=== PATIENT | female | born 1960 | race Caucasian/White ===

== ENCOUNTER 2021-08-06 06:29 | Day surgery (SDC) | payer BC, OTHER ==
[2021-08-04 10:27] LABS: BASOPHILS % (AUTO) 0.3 % (0.0-5.0); EOSINOPHILS % (AUTO) 2.3 % (0.0-8.0); HEMATOCRIT 39.7 % (36-48); LYMPHOCYTES % (AUTO) 31.3 % (21.0-51.0); MEAN CORPUSCULAR HGB CONC 33.5 g/dL (32.0-36.0); MEAN CORPUSCULAR VOLUME 95.7 fL (79-99); MONOCYTES % (AUTO) 8.2 % (3.0-13.0); NEUTROPHILS % (AUTO) 57.7 % (40.0-77.0); PLATELET COUNT (AUTO) 251 K/uL (130-400); RED BLOOD CELL COUNT(AUTO) 4.15 MIL/uL (4.00-5.50); RED CELL DISTRIBUTION WIDTH 11.9 % (11.0-15.5)
[2021-08-04 10:36] LABS: CREATININE 0.7 mg/dL (0.5-1.5); POTASSIUM 4.5 mmol/L (3.5-5.1)
[2021-08-05 09:27] VITALS: BP 118/75
[2021-08-06] VITALS (14 sets, daily range): BP systolic 120–153; BP diastolic 75–96
[~2021-08-06] VITALS: Ht 165.1 cm; Wt 69.3 kg
[~2021-08-06 06:29] MED LIST: MVIT PO
[2021-08-06] MEDS ORDERED: LACTATED RINGERS 1000ML 1,000 ML IV ONE (07:20)
[2021-08-06] MEDS ORDERED: CEFAZOLIN SODIUM 1 GM VIAL IVP ONE (08:00)
[2021-08-06] MEDS ORDERED: LIDOCAINE PF 100MG/5ML (2%) SYRINGE 5ML ONE (08:53)
[2021-08-06] MEDS ORDERED: SUCCINYLCHOLINE 200MG/10ML SYR ONE (08:53)
[2021-08-06] MEDS ORDERED: PROPOFOL 10 MG/ML 20ML VIAL IV ONE (08:54)
[2021-08-06] MEDS ORDERED: ROCURONIUM 10MG/1ML SYR 10 MG/ML ML ONE (08:54)
[2021-08-06] MEDS ORDERED: MIDAZOLAM HCL 1 MG/ML 2ML VIAL ONE (08:54)
[2021-08-06] MEDS ORDERED: FENTANYL CITRATE PF 50 MCG/1 ML 2ML VIAL ONE ×2 (08:54→09:19)
[2021-08-06] MEDS ORDERED: CEFAZOLIN SODIUM 1 GM VIAL ONE (09:11)
[2021-08-06] MEDS ORDERED: BUPIVACAINE/PF 0.5% 30ML VIAL ONE (09:11)
[2021-08-06] MEDS ORDERED: ACET1TAB25 PO ×3 (10:10→10:28)
[2021-08-06] MEDS ORDERED: CEPH500B PO (10:28)
== END 2021-08-06 11:40 | disposition home or self-care (01) ==
LOC: DAH 06:29
PROVIDERS: ATTEND Orthopaedic Surgery
DX: G56.02 Carpal tunnel syndrome, left upper limb (principal); Z20.822 Contact with and (suspected) exposure to COVID-19; Z98.890 Other specified postprocedural states; Z98.891 History of uterine scar from previous surgery; Z82.49 Family history of ischemic heart disease and other diseases of the circulatory system; Z80.9 Family history of malignant neoplasm, unspecified
CPT/HCPCS: 36415; 64721; 80048; 85025; 87635; A4215 ×2; A4216; A4221; A4222; A4223 ×2; A4565; A4649; A4663; A4930 ×2; A5120; A6223; C9803; J0330; J0690 ×2; J2001; J2250; J2704; J3010 ×2; J3490; J7120